=== PATIENT | female | born 1990 | race Hispanic/Latino ===

== ENCOUNTER 2018-04-10 00:55 | Emergency (ER) | payer OTHER, SELFPAY ==
[2018-04-10 01:42] LABS: #Basophils 0.1 thou/uL (0.0-0.2); #Eosinphils 0.1 thou/uL (0.0-0.7); #Lymphocytes 2.6 thou/uL (1.20-3.40); #Monocytes 0.5 thou/uL (0.11-0.59); #Neutrophils 3.9 thou/uL (1.40-6.50); %Basophils 1.1 % (0.0-1.0); %Eosinophils 1.3 % (0.0-10.0); %Lymphocytes 35.8 % (21.0-51.0); %Monocytes 7.5 % (0.0-10.0); %Neutrophils 54.3 % (42.0-75.0); Hemoglobin 12.1 g/dL (12.0-16.0); Mean Corpuscular HGB CONC 34.7 g/dL (32.0-36.0); Mean Corpuscular Hemoglobin 32.7 pg (27.0-31.0); Mean Corpuscular Volume 94.2 fL (78.0-98.0); Mean Platelet Volume 6.6 fL (7.4-10.4); Platelet Count 280 thou/uL (130-400); RBC Distribution Width 12.4 % (11.5-14.5); Red Blood Cell (RBC) Count 3.71 mill/uL (4.20-5.40); White Blood Cell (WBC) Count 7.2 thou/uL (4.8-10.8)
--- NOTE | 2018-04-10 12:08 | ULT ---
PRELIMINARY REPORT/[facility]/EMERGENCY AFTER HOURS PROCEDURE: EXAM: US Uterus, Limited CLINICAL HISTORY: 28 years old, female; Signs and symptoms; Lmp or gestational age (in weeks): 16w2d; Antepartum compli cations; Hemorrhage; ; Patient HX: Heavy vaginal bleeding tonight TECHNIQUE: Real-time ultrasound of the maternal uterus (limited) with image documentation. COMPARISON: No relevant prior studies available. FINDINGS: Single living intrauterine gestation in transverse presentation. heart rate: 145 bpm. GA by US: 16w2d. GA by LMP: 16w2d. SHAWNA: 09/23/2018. EFW: 154g-47%. Placenta is anterior grade 2. There is a focal heterogeneous area probably at the margin of the placenta measuring up to 3.5 cm reid t may represent a hematoma. Amniotic fluid appears adequate. Cervix is closed measuring 5.5 cm in lalo gth. IMPRESSION: Single viable intrauterine . Probable perigestational/marginal placental hematoma. Thank you for allowing us to participate in the care of your patient. Dictated and Authenticated by: Miguel Ashton MD 04/10/2018 3:23 AM Central Time ([place] & [place]) FINAL REPORT PELVIC ULTRASOUND: HISTORY: Vaginal bleeding. FINDINGS: Real-time imaging of the pelvis shows a single viable intrauterine in a predominantly trans verse lie. The placenta is anterior in location. Along the lower margin of the placenta is an area of mild decreased echogenicity measuring as much as 3.2 cm in length. This is suspicious for hematom a along the margin of the placenta. The exact lower position of the placenta is somewhat difficult t o ascertain as this area extends towards the cervical os. The cervix itself appears to be approximat leonel 5.4 cm in length. heart rate is 145 b.p.m. Amniotic fluid is adequate for this stage of . measurements are as follows: BPD 3.5 cm, 16 weeks 5 days Head circumference 12.7 cm, 16 weeks 3 days Abdominal circumference 11 cm, 16 weeks 6 days Femur length 1.9 cm, 15 weeks 6 days IMPRESSION: 1. Single viable intrauterine in a transverse lie, overall measurements corresponding to a gestational age of 16 weeks 2 days, estimated date of delivery 09/23/18. 2. Placenta which is more anterior in location. The lower margin of the placenta is difficult to de fine. Along the lower margin extending to the cervical os region is what appears to be a hematoma al reagan the margin of the placenta measuring as much as 3.5 cm in length. 3. This report is in agreement with the temporary report issued by [facility]. POS: [facility]
== END 2018-04-10 04:45 | disposition home or self-care (01) ==
LOC: ERS 00:55
DX: O46.92 Antepartum hemorrhage, unspecified, second trimester (principal); O43.892 Other placental disorders, second trimester; N89.8 Other specified noninflammatory disorders of vagina; Z3A.16 16 weeks gestation of pregnancy
CPT/HCPCS: 36415; 76856; 84702; 85025; 86900; 86901

== ENCOUNTER 2018-08-16 12:33 | Day surgery (SDC) | payer OTHER ==
--- NOTE | 2018-08-16 13:59 | PDOC.FPROB ---
FMR OB H&P: HPI - History of Present Illness Chief Complaint: abnormal BPP & NST in clinic Indentification: History of Present Illness: The patient is a 28YO @ 34.3 weeks today by LMP & 12.4 week sono who was sent over from [facility] after having an abnormal NST & BPP earlier today. The patient denies any decreased movement. She reports that she typically feels more movement at night and feels most daytime movement during contractions. Say she has been feeling contractions about 5x/day for the last week but says they only last about 3-5 minutes and then subside on their own. She denies any recent sexual activity, vaginal bleeding or fluid loss/leakage, or vaginal discharge, itching, or burning. The patient also denies any fever/ chills, N/V, chest pain, shortness of breath, or lower extremity edema. [facility] F[facility] OB H&P: Current - Care : 5 Para: 3013 Gestational age: 34.3 Due date: 09/24/2018 Dating Criteria: LMP & 12.4 week sono - OB Labs Blood type: O RH: positive Antibody Screen: negative HIV: negative RPR: negative HepBsAg: negative Rubella: immune Quad screen: unknown Urine drug screen: not done Gonorrhea: negative Chlamydia: negative Pap Smear: NILM & negative for HPV A1c: 5.7 on 06/20/18 GBS: unknown Additional labs: varicella immune & normal TSH FMR OB H&P: History - Past Medical History PMH: pre-gestational DM - OB History OB History: 1 SAB & 3 term SVDs - Surgical History Sx History: none - Social History Social History: No EtOH, drug, or tobacco use. - Family History Family History: Mother- DM FMR OB H&P: Medications - Current Home Medications: Medication Instructions Recorded Confirmed Type Vit 10/Iron/Folic/Dha 1 tablet PO DAILY 07/05/14 08/16/18 History [Vitafol-OB+DHA Combo Pack] Insulin Lispro [Humalog Kwikpen] 100 unit SQ DAILY 08/16/18 08/16/18 History Insulin NPH Hum/Reg Insulin HM 10,016 unit SQ DAILY 08/16/18 08/16/18 History [Humulin 70/30 Kwikpen] Insulin NPH Hum/Reg Insulin HM 25 unit SQ DAILY 08/16/18 08/16/18 History [Humulin 70/30 Kwikpen] Allergies/Adverse Reactions: Allergies Allergy/AdvReac Type Severity Reaction Status Date / Time No Known Allergies Allergy Verified 08/16/18 14:26 FMR OB H&P: ROS - Review of Systems General: denies: fever/chills Eyes: denies: vision changes, double vision Cardiovascular: denies: chest pain, palpitation, edema Respiratory: denies: shortness of breath Gastrointestinal: denies: abdominal pain, nausea, vomiting Genitourinary (Female): reports: contractions. denies: vaginal discharge, vaginal pain, vaginal bleeding Neurologic: reports: headache (mild that goes away with laying down) Integumentary: denies: rash FMR OB H&P: Vital Signs - Maternal Vital signs: BP: 102/62 HR: 92 FMR OB H&P: Physical Exam - Physical Exam General: NAD, awake, alert and oriented HEENT: normocephalic and atraumatic, MMM, grossly normal vision, grossly normal hearing, good dention Neck: supple, FROM Heart: RRR, normal S1/S2, no murmurs/rubs/gallops, pulses present, no edema General: CTAB, no respiratory distress, good air movement, no rales/rhonchi, no wheezing Abdomen: gravid, non-tender, bowel sound present Musculoskeletal: FROM in all four extremities Neurological: cranial nerves II through XII intact, sensation to pain,touch and proprioception grossly normal, no focal deficit Skin: no rash, good tugor, capillary refill <2 seconds, no jaundice Lymphatic: no unusual bruising or bleeding, no purpura, no petechia Psychiatric: intact recent and remote memory, good judgement and insight, normal mood and affect FMR OB H&P: A/P - Problem List (1) Decreased movement during in third trimester, antepartum Current Visit: Yes Status: Acute Code(s): O36.8130 - DECREASED MOVEMENTS, THIRD TRIMESTER, UNSP Qualifiers: Fetus number: single or unspecified fetus Qualified Code(s): O36.8130 - Decreased movements, third trimester, not applicable or unspecified (2) Multigravida in third trimester Current Visit: Yes Status: Chronic Code(s): Z34.83 - ENCOUNTER FOR SUPRVSN OF NORMAL , THIRD TRIMESTER (3) Diabetes in Current Visit: No Status: Acute Code(s): O24.919 - UNSP DIABETES MELLITUS IN , UNSPECIFIED TRIMESTER Qualifiers: Diabetes in type: pre-existing, type 2 Trimester: third trimester Qualified Code(s): O24.113 - Pre-existing type 2 diabetes mellitus, in , third trimester Disposition: 28 YO @ 34.3 weeks by LMP & 12.4 week sono who was sent over from clinic after having an abnormal BPP & a non-reactive NST. Abnormal testing in 3rd trimester: - BPP 6/10 w/ decreased points for breathing and a non-reactive NST in clinic today. - FHTs reassuring with baseline in the 140s and some accels noted. - Will get a repeat BPP/NST and growth scan. - Will continue with continuous monitoring to watch for reactivity and contractions. - Will also check a cervical length and do a cervical check to assess for any dilation. Class B Pre-gestational DM in : - Aware, patient is well-controlled on insulin therapy. Last A1c was 5.9. Down from 7.3 at the start of . Dispo: Will continue to monitor PRN based on results of testing and cervical exam. Discussion: Date/Time: 08/16/18 1071 This H&P was discussed with Dr. Ochoa and Dr. Lambert who agree with the above documentation and plan.
--- NOTE | 2018-08-16 14:46 | ULT ---
BIOPHYSICAL PROFILE: HISTORY: Assessment of growth. FINDINGS: A single viable intrauterine in a vertex presentation is noted. The placenta is anterior. The amniotic fluid is adequate for this stage of . Amniotic fluid index of 11.2 is obtaine d. biophysical profile scores are as follows: bone: 2. breathin. movement: 2. Amniotic fluid: 2. IMPRESSION: biophysical profile score 8 of a possible 8. POS: [facility]
--- NOTE | 2018-08-16 14:56 | ULT ---
OB ULTRASOUND: Date: 08/16/18 HISTORY: Evaluation of size and dates. FINDINGS: Real-time imaging of the pelvis was performed. This shows a single, viable intrauterine , wh ich is in a vertex presentation. The amniotic fluid is adequate for this stage of . Amniotic fluid index is 11.2. The placenta is anterior and more fundal in location. No previa. Cervical canal is not well visualized. heart rate is 153 beats/minute. measurements are as follows: BPD: 8.4 cm, 33 weeks/4 days HC: 30.6 cm, 34 weeks/0 days AC: 31.7 cm, 35 weeks/4 days FL: 6.6 cm, 34 weeks/1 day Assessment of anatomy was not performed for this study. IMPRESSION: 1. Single, viable intrauterine . Vertex presentation. Overall measurements corresponding to a gestational age of 34 weeks/2 days. Estimated date of delivery is 09/25/18. 2. Placenta which is anterior in location, without evidence of previa. POS: [facility]
--- NOTE | 2018-08-16 15:08 | PDOC.EVN ---
Event Note - Event Note Event Note: 28 YO @ 34.3 weeks by LMP & 12.4 week sono who was sent over from clinic after having an abnormal BPP & a non-reactive NST. Abnormal testing in 3rd trimester: - BPP 8/8 w/ > 2 accels noted within 10 minutes of NST. - Growth scan consistent w/ EGA of 34.2 weeks. - Cervical length 2.8-3 cm & BOGDAN of 11.2. - Cervical checked significant for a closed/thick/high cervix. - Scant amount of bloody discharge seen on cervical check & speculum exam. Likely 2/2 trauma from transvaginal U/S to check cervical length; however, will collect a VP3 to r/o infection and call patient with any abnormal results. - testing and cervical check reassuring so patient cleared for discharge home with close follow-up at clinic. Class B Pre-gestational DM in : - Aware, patient is well-controlled on insulin therapy. Last A1c was 5.9. Down from 7.3 at the start of . Dispo: Will discharge home with return precautions and instructions to follow- up closely w/ [facility]. This plan was discussed with Dr. Ochoa and Dr. Lambert who agree with the above documentation and plan.
== END 2018-08-16 14:50 | disposition home or self-care (01) ==
LOC: L&D/OP 12:33
PROVIDERS: ATTEND Obstetrics & Gynecology
DX: Z01.89 Encounter for other specified special examinations (principal); O24.113 Pre-existing type 2 diabetes mellitus, in pregnancy, third trimester; E11.9 Type 2 diabetes mellitus without complications; Z3A.34 34 weeks gestation of pregnancy; Z79.4 Long term (current) use of insulin; Z79.899 Other long term (current) drug therapy
CPT/HCPCS: 59025; 76805; 76819; 87480; 87510; 87660; 99283

== ENCOUNTER 2018-08-31 14:55 | Inpatient (IN) | payer OTHER, SELFPAY ==
[2018-08-31] MEDS ORDERED: Ondansetron PF 4 MG/2 ML Vial IVP PRN (15:45)
[2018-08-31] MEDS ORDERED: HumaLOG 300 UNITS/3 ML VIAL SC PRN ×2 (15:45)
[2018-08-31] MEDS ORDERED: Dextrose 50% Abboject 50 ML SYRINGE SLOW IVP PRN (15:45)
[2018-08-31] MEDS ORDERED: Dextrose 5% in Water 1,000 ML IV PRN (15:45)
[2018-08-31] MEDS ORDERED: Docusate 100 MG CAP PO PRN (15:45)
--- NOTE | 2018-08-31 16:19 | PDOC.FPROB ---
FMR OB H&P: HPI - History of Present Illness Chief Complaint: pregestational diabetes, poorly controlled History of Present Illness: 28 yo at 36.4 wks dated by LMP/12.4wk US (SHAWNA 09/24/18) here for admission from [facility] for poorly controlled pregestational diabetes on insulin. Reports that she takes NPH 28u in the morning and 24 units at night. Also takes humalog before meals at 16u, 13u, 18u. Does not have BG logs but this morning was 86, yesterday was 83 fasting, 170 two hours after breakfast, 140 two hours after lunch, 208 two hours after dinner. Endorses nightly FLORES, no vision disturbances, no LOF or VB, positive FM with no changes in activity. Reports all deliveries have been at 38 weeks and all vaginal except for her third which was a spon ab. Most recent delivery was her largest baby at 9#14oz. Also, had subchorionic hematoma at around 16wks, has not had any bleeding since then. HA1c on 07/18 was 5.9. Primary Care Physician: [facility] FMR OB H&P: Current - Care : 5 Para: 3013 Gestational age: 36.4 Due date: September 24, 2018 Dating Criteria: LMP and 12.4wk US - OB Labs HIV: negative RPR: negative Gonorrhea: negative Chlamydia: negative Pap Smear: negative with negative HPV A1c: 5.9 on 07/18 GBS: positive H&H: 12.2/35.5 Platelets: 278 - First Trimester Ultrasound First trimester: 03/16/18 anterior placenta FHR: 150 12.4wks SHAWNA: September 24, 2018 - Anatomy Survey Anatomy survey: 05/03/18 19.3wks biometry is consistent with the previously established dates. The anatomy is adequately visualized and appears normal. Subchorionic hematoma measures 5x3cm and is in communication with cervical os FMR OB H&P: Medications - Current Home Medications: Medication Instructions Recorded Confirmed Type Vit 10/Iron/Folic/Dha 1 tablet PO DAILY 07/05/14 08/31/18 History [Vitafol-OB+DHA Combo Pack] Insulin Lispro [Humalog Kwikpen] 13 unit SQ DAILY 08/16/18 08/31/18 History Insulin Lispro [Humalog Kwikpen] 16 unit SQ DAILY 08/16/18 08/31/18 History Insulin Lispro [Humalog Kwikpen] 18 unit SQ DAILY 08/16/18 08/31/18 History Insulin NPH Hum/Reg Insulin HM 24 unit SQ DAILY 08/16/18 08/31/18 History [Humulin 70/30 Kwikpen] Insulin NPH Hum/Reg Insulin HM 28 unit SQ DAILY 08/16/18 08/31/18 History [Humulin 70/30 Kwikpen] Aspirin [Ecotrin] 81 mg PO DAILY 08/31/18 08/31/18 History Allergies/Adverse Reactions: Allergies Allergy/AdvReac Type Severity Reaction Status Date / Time No Known Allergies Allergy Verified 08/16/18 14:26 FMR OB H&P: ROS - Review of Systems General: denies: fever/chills, recent trauma Eyes: denies: vision changes, scotomas, floaters Cardiovascular: denies: edema Respiratory: denies: shortness of breath Gastrointestinal: denies: nausea, vomiting Genitourinary (Female): denies: vaginal discharge, vaginal bleeding Musculoskeletal: denies: pain Neurologic: denies: seizures, loss of counsciousness FMR OB H&P: Vital Signs - Maternal Vital signs: Vital Signs - First Documented Temp Pulse Resp BP Pulse Ox 98.0 F 80 19 109/68 97 08/31/18 15:34 08/31/18 15:34 08/31/18 15:34 08/31/18 15:34 08/31/18 15:34 FMR OB H&P: Physical Exam - Physical Exam General: NAD, awake, alert and oriented HEENT: MMM, grossly normal vision Neck: supple, FROM Heart: RRR, normal S1/S2 General: CTAB, no respiratory distress, good air movement Abdomen: soft, gravid Neurological: sensation to pain,touch and proprioception grossly normal Skin: good tugor, capillary refill <2 seconds FMR OB H&P: Results - Labs Lab results: Laboratory Results - last 24 hr 08/31/18 15:13 POC Glucose 94 FMR OB H&P: A/P - Problem List (1) Pregestational diabetes mellitus, modified White class B Current Visit: Yes Status: Acute Code(s): O24.319 - UNSP PRE-EXISTING DIABETES IN , UNSP TRIMESTER (2) Multigravida in third trimester Current Visit: No Status: Chronic Code(s): Z34.83 - ENCOUNTER FOR SUPRVSN OF NORMAL , THIRD TRIMESTER (3) Subchorionic hematoma in first trimester Current Visit: Yes Status: Acute Code(s): O41.8X10 - OTH DISRD OF AMNIOTIC FLUID AND MEMBRNS, FIRST TRI, UNSP; O46.8X1 - OTHER ANTEPARTUM HEMORRHAGE, FIRST TRIMESTER Disposition: 28 at 36.4wks here for better control of diabetes. Will check BPP, biometry NST qshift continue insulin regimen as described in H&P, adjust as needed add mild SSI with nighttime dose accucheck fasting and 2 hrs postprandial daily weights will likely plan to induce at 37wks SHAWNA 09/24/18 Discussion: Date/Time: 08/31/18 1612 This H&P was discussed with [] and [] who agree with the above documentation and plan. Addendum - Attending - Attending Attestation Date/Time: 08/31/18 1710 I personally evaluated the patient and discussed the management with Dr. Malagon I agree with the History, Examination, Assessment and Plan documented above with any addition or exceptions noted below. 28 yo female at 36.4 wks by LMP/12.4 wk julisa presents for uncontrolled pregestational DM (class B) Patient seen earlier today at [facility]. Noted to have above goal 2 hour postprandial values. Currently not taking recommend insulin dosing and not following lifestyle recommendations. Previously declined admission for insulin adjustment. Denies LOF, VB, FLORES, visual changes, abdominal pain. +FM. VS reviewed. Labs pending. Sono reviewed. NAD. RRR. no murmurs. Gravid. NT/ND. Andrés 6 lbs. Vertex. No e/c/c 1. sIUP: record reviewed. 2. Uncontrolled, Class B, pregestational DM: Record reviewed. Restart recommend insulin reg. Start CC diet. Sono reviewed. NST q shift. Correct glucose per SSI. Goal of < 95/120. Reviewed case with laborist on-call (Dr. Garcia), agreed with IOL. Recommend 37 wks. A1C pending. Monitor of s/sx of preE due to risk. Sono: Vertex. Anterior placenta. BPP 8/8. BOGDAN 13.3 cm. EFW = 2843 g (6lb 4oz) 43 %. NST pending. Will continue inpatient monitoring. Adjust insulin as indicated. Plan for IOL at 37 wks. Blake
[2018-08-31] MEDS ORDERED: HumaLOG 300 UNITS/3 ML VIAL SC SCH (17:00)
[2018-08-31 17:15] LABS: #Lymphocytes 1.7 thou/uL (1.20-3.40); #Monocytes 0.4 thou/uL (0.11-0.59); #Neutrophils 4.4 thou/uL (1.40-6.50); %Basophils 0.6 % (0.0-1.0); %Eosinophils 0.6 % (0.0-10.0); %Lymphocytes 25.9 % (21.0-51.0); %Monocytes 6.7 % (0.0-10.0); %Neutrophils 66.2 % (42.0-75.0); Hemoglobin 12.3 g/dL (12.0-16.0); Mean Corpuscular HGB CONC 33.8 g/dL (32.0-36.0); Mean Corpuscular Hemoglobin 31.1 pg (27.0-31.0); Mean Platelet Volume 6.9 fL (7.4-10.4); Platelet Count 280 thou/uL (130-400); RBC Distribution Width 13.5 % (11.5-14.5); Red Blood Cell (RBC) Count 3.97 mill/uL (4.20-5.40); White Blood Cell (WBC) Count 6.6 thou/uL (4.8-10.8)
[2018-08-31 17:24] LABS: Hemoglobin A1c 6.2 % (4.0-6.0)
--- NOTE | 2018-08-31 17:50 | ULT ---
ULTRASOUND BIOPHYSICAL PROFILE 08/31/18 HISTORY: Pregestational diabetes. COMPARISON: None. TECHNIQUE/FINDINGS: Real time tapia scale and color and spectral analysis of the gravid uterus was performed. The cervical length is 4.6 cm. heart rate documented at 145 beats per minute. CORD DOPPLER: Placenta insertion: Peak systolic velocity 63.9 cm/s. End diastolic velocity 30.7 cm/s. Systolic to d iastolic ratio 2.08. Mid umbilical artery: Peak systolic velocity 82.3 cm/s. End diastolic velocity 33.1 cm/s. Systolic to diastolic ratio 2.49. insertion: Peak systolic velocity 54.6 cm/s. End diastolic velocity 19.8 cm/s. Systolic to tayo stolic ratio 2.76. Amniotic fluid index is 13.3 cm. This is a single viable intrauterine with average ultrasound age of 35 weeks, 6 day. Estima trisha date of delivery 09/29/18. Estimated weight is 6 lb. 4 oz., 43rd percentile. BIOMETRY: Biparietal diameter 8.82 cm 35 week, 3 day Head circumference 31.91 cm 36 week, 0 day Abdominal circumference 32.69 cm 36 week, 4 day Femur length 6.86 cm 35 week, 2 day Biophysical profile score is 8/8. The position is vertex. The placenta is anterior. IMPRESSION: Single viable intrauterine with biophysical profile score of 8/8. POS: [facility]
[2018-08-31] MEDS ORDERED: NPH, Human Insulin Isophane 300 UNIT/3 ML VIAL SC SCH (18:00)
[2018-08-31 18:02] LABS: HBSAg Index 0.23 S/CO (0-0.99); HIV (1/2) Antibody/Antigen Non-Reactive (NonReactive); HIV 1/2 INDEX 0.15 S/CO (<1.00); Hep B Surf Ag Non-Reactive S/CO (NonReactive); Syphilis Antibody Nonreactive (Nonreactive); Syphilis Antibody Index 0.02 S/CO (<1.00 Non-Reactive)
[2018-08-31] MEDS: NPH, Human Insulin Isophane 300 UNIT/3 ML VIAL SC SCH (21:22)
[2018-09-01] MEDS ORDERED: NPH, Human Insulin Isophane 300 UNIT/3 ML VIAL SC SCH (06:00)
--- NOTE | 2018-09-01 06:57 | PDOC.FM ---
- Subjective Subjective: 28 yo @ 36.5 by LMP c/w 12.4 week [facility] day 1 here for uncontrolled BS. Pt reports pos movement, denies LOF, CTX, NVDC, vaginal bleeding and vaginal discharge. No other complaints. Per nurse last evening BS were post-prandial 130 and 123 before bed. This morning AM fasting BS was 74. NST is pending. - Objective Vital Signs & Weight: Vital Signs (12 hours) Temp Pulse Resp BP Pulse Ox 09/01/18 04:05 98.6 F 87 20 96/57 L 97 09/01/18 00:10 98.2 F 78 18 109/58 L 99 08/31/18 19:25 97.7 F 74 16 101/61 98 Weight Weight 72.575 kg Result Diagrams: 08/31/18 17:04 Phys Exam - Physical Examination Constitutional: NAD HEENT: PERRLA, sclera anicteric Respiratory: no wheezing, no rales, no rhonchi, clear to auscultation bilateral Cardiovascular: RRR, no significant murmur, no rub Gastrointestinal: soft, non-tender Gravid Musculoskeletal: no edema, pulses present Neurological: non-focal, moves all 4 limbs Psychiatric: normal affect Dx/Plan (1) Pregestational diabetes mellitus, modified White class B Code(s): O24.319 - UNSP PRE-EXISTING DIABETES IN , UNSP TRIMESTER Status: Acute (2) Diabetes in Code(s): O24.919 - UNSP DIABETES MELLITUS IN , UNSPECIFIED TRIMESTER Status: Acute Qualifiers: Diabetes in type: pre-existing, type 2 Trimester: third trimester Qualified Code(s): O24.113 - Pre-existing type 2 diabetes mellitus, in , third trimester - Plan Plan: 1) White Class B diabetic: - pt had elevated dinner post-prandial and HS elevated BS - Given pt has good glycemic control prior to dinner and AM fasting BS is good will keep current NPH dosing; however, pt will need increase in short acting insulin - Increase 1700 dosing to 20U (approx 10% increase) and continue to monitor - will await additional data points before more adjusting - cont NST qshift, AM NST currently pending Dispo: stable, will cont to titrate insulin as needed for good glycemic control . Maintain current NPH dosing. Addendum - Attending - Attending Attestation Date/Time: 09/01/18 1221 I personally evaluated the patient and discussed the management with Dr. Sena I agree with the History, Examination, Assessment and Plan documented above with any addition or exceptions noted below - Patient without complaints. (+) FM. Afebrile VSS. A/P: 1) IUP@ 36 5/7 weeks - continue NST qshift. 2) Pregestational DM Class B- BG much better. Adjusted humalog for elevated postpradial. Plan to induce @ 37 weeks. Cervix /-3/post/soft- scheduled for cytotec on Monday.
[2018-09-01] MEDS: HumaLOG 300 UNITS/3 ML VIAL SC SCH ×3 (09:10→17:51)
[2018-09-01] MEDS: Prenatal Vitamin 1 TAB PO SCH (11:33)
[2018-09-01] MEDS: Aspirin 81 mg Enteric Coated Tablet PO SCH (11:33)
[2018-09-01] MEDS: NPH, Human Insulin Isophane 300 UNIT/3 ML VIAL SC SCH ×2 (11:34→21:00)
[2018-09-01] MEDS ORDERED: Sodium Chloride 0.9% 500 ML IV SCH (20:30)
[2018-09-02] MEDS: Prenatal Vitamin 1 TAB PO SCH (08:30)
[2018-09-02] MEDS: Aspirin 81 mg Enteric Coated Tablet PO SCH (08:30)
[2018-09-02] MEDS: HumaLOG 300 UNITS/3 ML VIAL SC SCH ×3 (08:35→18:24)
[2018-09-02] MEDS: NPH, Human Insulin Isophane 300 UNIT/3 ML VIAL SC SCH ×2 (08:35→21:57)
--- NOTE | 2018-09-02 12:26 | PDOC.FM ---
- Subjective Subjective: 28 yo @ 36.6 by LMP c/w 12.4 week US, hospital day 2 here for uncontrolled BS. Patient reports doing well overnight. Endorses FM. Denies FLORES, CP, RUQ pain, contractions, LOF, VB. Her BG continues to fluctuate over the past day. She had a BG reading of 47 in the morning which she attributes to having alterations in her feeding schedule in the hospital. This value increased to >200 after receiving orange juice. She also did not get her lunch humalog. She did have report having some contractions yesterday which resolved. - Objective MAR Reviewed: Yes Vital Signs & Weight: Vital Signs (12 hours) Temp Pulse Resp BP BP Pulse Ox 09/02/18 12:10 97.8 F 86 18 95/53 L 97 09/02/18 08:33 98.1 F 79 16 99/65 09/02/18 04:00 98.8 F 78 18 95/51 L Weight Weight 72.575 kg Result Diagrams: 08/31/18 17:04 Phys Exam - Physical Examination Constitutional: NAD Respiratory: no wheezing, clear to auscultation bilateral Cardiovascular: RRR, no significant murmur Gastrointestinal: soft gravid Musculoskeletal: no edema Neurological: moves all 4 limbs Psychiatric: normal affect Dx/Plan (1) Pregestational diabetes mellitus, modified White class B Code(s): O24.319 - UNSP PRE-EXISTING DIABETES IN , UNSP TRIMESTER Status: Acute (2) Multigravida in third trimester Code(s): Z34.83 - ENCOUNTER FOR SUPRVSN OF NORMAL , THIRD TRIMESTER Status: Chronic (3) Subchorionic hematoma in first trimester Code(s): O41.8X10 - OTH DISRD OF AMNIOTIC FLUID AND MEMBRNS, FIRST TRI, UNSP; O46.8X1 - OTHER ANTEPARTUM HEMORRHAGE, FIRST TRIMESTER Status: Acute - Plan Plan: 1) White Class B diabetic: - seems that her fasting BG is good, all others are high (except the 47 in the early afternoon) - We will continue with regimen that was done yesterday by Dr. Sena and encouraged patient to eat appropriate meals at the appropriate time. - will await additional data points before more adjusting - cont NST qshift, have been ok so far Dispo: stable, will cont to titrate insulin as needed for good glycemic control . Maintain current NPH dosing. Addendum - Attending - Attending Attestation Date/Time: 09/02/18 8433 I personally evaluated the patient and discussed the management with Dr. Malagon I agree with the History, Examination, Assessment and Plan documented above with any addition or exceptions noted below- Patient without complaints. (+)FM Afebrile VSS. A/p: 1) IUP @ 36 6/7 weeks with Class B DM- continue current insulin regimen. Had 1 hypoglycemia episode. Encouraged patient to eat regularly including snacks. Plan for cervical ripening Monday night.
--- NOTE | 2018-09-03 05:43 | PDOC.FM ---
- Subjective Subjective: Pt reports she did well overnight. She states that she has been feeling some contractions ~10 minutes apart with some pain this morning. She denies loss of fluids, vaginal discharge, vaginal bleeding, nausea, or vomiting. She does report FM and states she has been eating ok. - Objective MAR Reviewed: Yes Vital Signs & Weight: Vital Signs (12 hours) Temp Pulse Resp BP Pulse Ox 09/02/18 20:15 98.1 F 82 20 106/56 L 98 Weight Weight 72.575 kg Result Diagrams: 08/31/18 17:04 Phys Exam - Physical Examination Constitutional: NAD HEENT: moist MMs Neck: no JVD, full ROM Respiratory: no wheezing, no rales, clear to auscultation bilateral Cardiovascular: RRR, no significant murmur, no rub Gastrointestinal: soft (gravid, mild diffuse pain to palpation) Musculoskeletal: no edema, pulses present Neurological: non-focal, normal sensation, moves all 4 limbs Psychiatric: normal affect, A&O x 3 Skin: cap refill <2 seconds Dx/Plan (1) Pregestational diabetes mellitus, modified White class B Code(s): O24.319 - UNSP PRE-EXISTING DIABETES IN , UNSP TRIMESTER Status: Acute (2) Subchorionic hematoma in first trimester Code(s): O41.8X10 - OTH DISRD OF AMNIOTIC FLUID AND MEMBRNS, FIRST TRI, UNSP; O46.8X1 - OTHER ANTEPARTUM HEMORRHAGE, FIRST TRIMESTER Status: Acute (3) Multigravida in third trimester Code(s): Z34.83 - ENCOUNTER FOR SUPRVSN OF NORMAL , THIRD TRIMESTER Status: Chronic - Plan Plan: This is a at 37.0 by LMP c/w 12.4 week US, Hospital day 3 White Class B diabetic -Blood sugar appears to be more consistent since pt instruction and adjustment of her regimen 2 days ago. -Pt continues to have reactive NSTs -We will continue monitoring her sugar and -Overnight, BG ranged from 63-108 Addendum - Attending - Attending Attestation Date/Time: 09/03/18 1120 I personally evaluated the patient and discussed the management with Dr. Johnson I agree with the History, Examination, Assessment and Plan documented above with any addition or exceptions noted below - Patient without complaints. Afebrile VSS. A/P: IUP @37 weeks with Class B DM - BG improved. Will decrease evening NPH due to borderline low fasting readings. Induction scheduled for Monday evening.
[2018-09-03] MEDS: HumaLOG 300 UNITS/3 ML VIAL SC SCH ×3 (09:26→17:44)
[2018-09-03] MEDS: Prenatal Vitamin 1 TAB PO SCH (11:06)
[2018-09-03] MEDS: Aspirin 81 mg Enteric Coated Tablet PO SCH (11:07)
[2018-09-03] MEDS: NPH, Human Insulin Isophane 300 UNIT/3 ML VIAL SC SCH ×2 (11:09→21:16)
--- NOTE | 2018-09-04 05:19 | PDOC.FM ---
- Subjective Subjective: Pt states she did well overnight. She reports a low sugar this morning and required some milk. She denies contractions, LOF, abdominal pain, nausea, vomiting, headaches, or chest pain. She reports FM. - Objective MAR Reviewed: Yes Vital Signs & Weight: Vital Signs (12 hours) Temp Pulse Resp BP Pulse Ox 09/03/18 19:55 98.3 F 89 20 101/70 97 Weight Weight 72.575 kg Result Diagrams: 08/31/18 17:04 Phys Exam - Physical Examination Constitutional: NAD HEENT: moist MMs Neck: no JVD, full ROM Respiratory: no wheezing, clear to auscultation bilateral Cardiovascular: RRR, no significant murmur Gastrointestinal: soft, non-tender, no distention (gravid), positive bowel sounds Musculoskeletal: no edema, pulses present Neurological: moves all 4 limbs Psychiatric: normal affect, A&O x 3 Skin: cap refill <2 seconds Dx/Plan (1) Pregestational diabetes mellitus, modified White class B Code(s): O24.319 - UNSP PRE-EXISTING DIABETES IN , UNSP TRIMESTER Status: Acute (2) Subchorionic hematoma in first trimester Code(s): O41.8X10 - OTH DISRD OF AMNIOTIC FLUID AND MEMBRNS, FIRST TRI, UNSP; O46.8X1 - OTHER ANTEPARTUM HEMORRHAGE, FIRST TRIMESTER Status: Acute (3) Multigravida in third trimester Code(s): Z34.83 - ENCOUNTER FOR SUPRVSN OF NORMAL , THIRD TRIMESTER Status: Chronic - Plan Plan: White Class B diabetic -Blood sugar appears to be more consistent since pt instruction and adjustment of her regimen 3 days ago. -Pt continues to have reactive NSTs -We will continue monitoring her sugar and -Pt is scheduled for induction tonight due to uncontrollable blood glucose in -Pt continues to have elevated post prandial sugars. We are increasing her meal time insulin. Addendum - Attending - Attending Attestation Date/Time: 09/04/18 1140 I personally evaluated the patient and discussed the management with Dr. Johnson I agree with the History, Examination, Assessment and Plan documented above with any addition or exceptions noted below - Patient without complaints. Afebrile VSS. A/P: IUP@ 37 1/7 weeks with Class B DM- short acting insulin adjusted due to elevated postprandial readings. Plan for induction today. Reassuting NSTs.
[2018-09-04] MEDS: Prenatal Vitamin 1 TAB PO SCH (08:31)
[2018-09-04] MEDS: NPH, Human Insulin Isophane 300 UNIT/3 ML VIAL SC SCH ×2 (08:32→20:25)
[2018-09-04] MEDS: HumaLOG 300 UNITS/3 ML VIAL SC SCH ×2 (08:33→17:36)
[2018-09-04] MEDS: Aspirin 81 mg Enteric Coated Tablet PO SCH (09:16)
[2018-09-04] MEDS ORDERED: HumaLOG 300 UNITS/3 ML VIAL SC SCH (10:51)
--- NOTE | 2018-09-04 14:48 | PDOC.EVN ---
Event Note - Event Note Event Note: Called to pt's room by nursing due to pt having strong contractions. I check pt and SVE was /-3, posterior, firm. FHTs baseline 140s, moderate reactivity, accels present, no decels. We will likely recheck pt in 4 hours if she continues to have painful contractions. I am giving 1L of LR at 125ml/hr.
[2018-09-04] MEDS: Lactated Ringer's 1,000 ML IV SCH (14:54)
[2018-09-05] MEDS: Lactated Ringer's 1,000 ML IV SCH ×2 (00:02→13:53)
[2018-09-05] MEDS ORDERED: Misoprostol 100 MCG TAB ONE (05:01)
[2018-09-05] MEDS: Misoprostol 100 MCG TAB VAG SCH ×2 (05:20→11:09)
[2018-09-05] MEDS ORDERED: Butorphanol Tartrate 1 MG/ML VIAL SLOW IVP PRN (05:45)
[2018-09-05] MEDS ORDERED: NS / Oxytocin 40 units/1000ml 1,000 ML IV PRN (05:45)
[2018-09-05] MEDS ORDERED: Lidocaine 1% (PF) 30 ML VIAL SC PRN (05:45)
[2018-09-05] MEDS ORDERED: Ibuprofen 800 MG TAB PO SCH (05:45)
[2018-09-05] MEDS ORDERED: Misoprostol 200 MCG TAB PR PRN (05:45)
[2018-09-05] MEDS ORDERED: Penicillin G Potassium 5 MILL.UNITS in Sodium Chloride 0.9% 100 ML IVPB SCH (05:45)
[2018-09-05] MEDS ORDERED: Dextrose 5 %-0.45 % NaCl 1,000 ML IV PRN (05:56)
[2018-09-05] MEDS ORDERED: HumaLOG 300 UNITS/3 ML VIAL SC PRN ×3 (05:58→06:00)
--- NOTE | 2018-09-05 05:59 | PDOC.LDPN ---
Labor & Delivery Progress Note - Subjective Subjective: comfortable - Objective Vital signs reviewed and normal: yes General: NAD, resting Dilation: 0 Effacement: 0% Station: -3 FHT: category 1 (140/mod/+accel/no decel) Plan: labor augmentation -: IOL, medically indicated for uncontrolled DM in - Cat 1 strip - closed/thick/high @ 0530, cytotec placed - White class B: q2h glucose checks. Decrease long acting to half dose. Has had 2 episodes hypoglycemia in 60s overnight corrected with juice/crackers. SSI parameter protocol - D5 1/2 @ 125 for BG <140 during labor GBS positive - start antibiotic ppx Dispo: medically indicated IOL, will place cytotec
[2018-09-05] MEDS ORDERED: Sodium Chloride 0.45% 1,000 ML IV PRN (06:08)
[2018-09-05] MEDS ORDERED: NPH, Human Insulin Isophane 300 UNIT/3 ML VIAL SC SCH ×2 (07:00→21:00)
[2018-09-05] MEDS ORDERED: Fentanyl 4 mcg/Bup 0.1% Cadd 100 ML ONE ×2 (08:42→17:31)
[2018-09-05] MEDS ORDERED: Acetaminophen 325 MG TAB PO PRN (09:08)
[2018-09-05] MEDS ORDERED: Eucerin (Mineral Oil/Petrolatum,White) 30 gm Jar TOP PRN (09:08)
[2018-09-05] MEDS ORDERED: Promethazine HCl 25 MG/ML VIAL IM PRN (09:08)
[2018-09-05] MEDS ORDERED: Lactated Ringer's 500 ML IV PRN (09:08)
[2018-09-05] MEDS ORDERED: diphenhydrAMINE 50 MG/ML VIAL IVP PRN (09:08)
[2018-09-05] MEDS ORDERED: Ondansetron PF 4 MG/2 ML Vial IVP PRN ×2 (09:08→20:59)
[2018-09-05] MEDS ORDERED: ePHEDrine/0.9% NaCl/PF SYRINGE 50 mg/10 ml SLOW IVP PRN (09:08)
[2018-09-05] MEDS ORDERED: Naloxone HCl 0.4 mg/ml Vial IVP PRN ×2 (09:08)
[2018-09-05] MEDS ORDERED: Fentanyl 4 mcg/Bupivacaine 0.1% Cassette 100 ML EPIDURAL SCH (09:15)
[2018-09-05] MEDS ORDERED: Communication Order-Pharmacy FS SCH (09:15)
--- NOTE | 2018-09-05 09:25 | PDOC.LDPN ---
Labor & Delivery Progress Note - Subjective Subjective: comfortable, no concerns - Objective Vital signs reviewed and normal: yes General: NAD, resting Uterine fundus: non tender Dilation: 3 Effacement: 75% Station: -2 FHT: category 1, variability present (moderate, baseline 140) [place] contractions every: 2 minutes - Assessment (1) Pregestational diabetes mellitus, modified White class B Code(s): O24.319 - UNSP PRE-EXISTING DIABETES IN , UNSP TRIMESTER Current Visit: Yes Status: Acute (2) Subchorionic hematoma in first trimester Code(s): O41.8X10 - OTH DISRD OF AMNIOTIC FLUID AND MEMBRNS, FIRST TRI, UNSP; O46.8X1 - OTHER ANTEPARTUM HEMORRHAGE, FIRST TRIMESTER Current Visit: Yes Status: Acute (3) Multigravida in third trimester Code(s): Z34.83 - ENCOUNTER FOR SUPRVSN OF NORMAL , THIRD TRIMESTER Current Visit: No Status: Chronic -: IOL, medically indicated for uncontrolled DM in -Cat 1 strip, baseline 140, moderate variability -3/70/-2 -Rey every 2 minutes, hold current dose of cytotec -White class B: q2hr glucose check. Latest was 67, hold insulin -Desires epidural GBS positive -Continue abx (has received first dose)
[2018-09-05] MEDS: Penicillin G 2.5 MILL.units 2.5 MILL.UNITS in Premix Bag 1 BAG IVPB SCH ×3 (10:06→18:40)
[2018-09-05 10:23] VITALS: BMI 28.9
[2018-09-05] MEDS: Aspirin 81 mg Enteric Coated Tablet PO SCH (11:09)
--- NOTE | 2018-09-05 14:56 | PDOC.LDPN ---
Labor & Delivery Progress Note - Subjective Subjective: comfortable - Objective Vital signs reviewed and normal: yes General: NAD Uterine fundus: non tender SVE: 12:40 by nurse Dilation: 5 Effacement: 75% Station: -1 FHT: category 1, variability present [place] contractions every: q1 min - Assessment (1) Term Code(s): Z34.80 - ENCOUNTER FOR SUPRVSN OF NORMAL , UNSP TRIMESTER Current Visit: Yes Status: Acute (2) Pregestational diabetes mellitus, modified White class B Code(s): O24.319 - UNSP PRE-EXISTING DIABETES IN , UNSP TRIMESTER Current Visit: Yes Status: Acute Plan: continue plan of care -: 28 year old at 37.2 wks present with history of uncontrolled pregestational DM Class B Continue current plan of care. Patient s/p cytotec. Category I strip. BG has been in 90's all day. Has not required PRN insulin. Dominique Burkett, DO PGY-2
--- NOTE | 2018-09-05 15:38 | PDOC.LDPN ---
Labor & Delivery Progress Note - Objective Vital signs reviewed and normal: yes General: resting Uterine fundus: non tender SVE: /-1 FHT: category 1 [place] contractions every: q3 min - Assessment (1) Pregestational diabetes mellitus, modified White class B Code(s): O24.319 - UNSP PRE-EXISTING DIABETES IN , UNSP TRIMESTER Current Visit: Yes Status: Acute (2) Subchorionic hematoma in first trimester Code(s): O41.8X10 - OTH DISRD OF AMNIOTIC FLUID AND MEMBRNS, FIRST TRI, UNSP; O46.8X1 - OTHER ANTEPARTUM HEMORRHAGE, FIRST TRIMESTER Current Visit: Yes Status: Acute (3) Multigravida in third trimester Code(s): Z34.83 - ENCOUNTER FOR SUPRVSN OF NORMAL , THIRD TRIMESTER Current Visit: No Status: Chronic Plan: continue plan of care -: Reassuring FHTs. Plan to AROM soon. Last accucheck 90; continue to monitor.
--- NOTE | 2018-09-05 17:23 | PDOC.LDPN ---
Labor & Delivery Progress Note - Subjective Subjective: comfortable - Objective Vital signs reviewed and normal: yes General: NAD Uterine fundus: non tender SVE: 16:51 Dilation: 6 Effacement: 90% Station: -1 FHT: category 1, variability present [place] contractions every: 1-2 min AROM: bloody fluid (with clear fluid) - Assessment (1) Term Code(s): Z34.80 - ENCOUNTER FOR SUPRVSN OF NORMAL , UNSP TRIMESTER Current Visit: Yes Status: Acute (2) Pregestational diabetes mellitus, modified White class B Code(s): O24.319 - UNSP PRE-EXISTING DIABETES IN , UNSP TRIMESTER Current Visit: Yes Status: Acute Plan: continue plan of care -: AROM at 16:50. Cervical check /-1. Dilation unchanged from previous exam. Continue current plan of care. Patient with epidural resting comfortably. Consider pitocin at next check if no change.
[2018-09-05] MEDS ORDERED: Lanolin Ointment 7 GM TUBE TOP PRN (20:59)
[2018-09-05] MEDS ORDERED: NS / Oxytocin 40 units/1000ml 1,000 ML IV SCH (20:59)
[2018-09-05] MEDS ORDERED: Milk Of Magnesia 30 ML UDCUP PO PRN (20:59)
[2018-09-05] MEDS ORDERED: diphenhydrAMINE 25 MG CAP PO PRN (20:59)
[2018-09-05] MEDS ORDERED: Bisacodyl 10 MG SUPP PR PRN (20:59)
[2018-09-05] MEDS ORDERED: NS / Oxytocin 40 units/1000ml 1,000 ML ONE (21:05)
[2018-09-05] MEDS: Docusate Calcium (SURFAK) 240 MG CAP PO SCH (23:43)
[2018-09-05] MEDS: Ibuprofen 800 MG TAB PO SCH (23:43)
[2018-09-06] MEDS: Ibuprofen 800 MG TAB PO SCH ×3 (06:08→21:50)
--- NOTE | 2018-09-06 06:19 | PDOC.OPDEL ---
OB Operative/Delivery Note Delivery Dr/Surgeon: Tiesha/ Pre-Delivery Diagnosis: medically indicated induction Procedure/Post Delivery Dx: spontaneous vaginal delivery Weeks gestation: 37 (37.1) Anesthesia: epidural - Additional Findings/Plan Placenta delivered: spontaneous Repaired Obstetrical Laceration: none Estimated blood loss: 32 mL Compilations/Other Findings: Delivering Physician: Tiesha Attending: Procedure: Spontaneous Vaginal Delivery Anesthesia: epidural QBL: 32 ml Pre-op Diagnosis: 1. Term intrauterine in labor 2. Pregestational DM class B, uncontrolled 3. GBS positive Post-op Diagnosis: 1. Term intrauterine , delivered 2. same as above Indications: A 28 y/o female presents to L&D for induction due to uncontrolled pregestational DM Delivery Note: This is 28 yo F @ 37.1 wks who delivered a viable F at 1910 on 07/05/2019. Following an uneventful antepartum course, a vigorous F was delivered over an intact perineum in the occipitoanterior position. Anterior Shoulder and then remainder of the body delivered. No nuchal cord. The head was held down and mouth and nares were bulb suctioned. Cord clamped after delayed cord clamping and cut and cord blood collected. Placenta delivered intact in the [place] presentation with a 3 vessel cord noted. Fundal massage was performed and the fundus was firm. The cervix and vagina were inspected and found to be free of lacerations. Infant went to nursery in good condition for routine care. Apgars were 9/9 at 1 & 5 minutes, respectively. Patient tolerated delivery well and went to after routine recovery/care. Post delivery plan: routine recovery
[2018-09-06] MEDS ORDERED: HumaLOG 300 UNITS/3 ML VIAL SC SCH ×3 (07:30→17:00)
[2018-09-06] MEDS: Ferrous Sulfate 325 MG TAB PO SCH ×2 (07:38→17:02)
[2018-09-06] MEDS: Misoprostol 100 MCG TAB VAG SCH (08:13)
[2018-09-06] MEDS: Lactated Ringer's 1,000 ML IV SCH (08:13)
[2018-09-06] MEDS: Prenatal Vitamin 1 TAB PO SCH (08:35)
[2018-09-06] MEDS: Docusate Calcium (SURFAK) 240 MG CAP PO SCH ×2 (08:35→21:49)
[2018-09-06] MEDS ORDERED: Adacel (T-DAP) 0.5 ML SYRINGE IM ONE (09:00)
[2018-09-06] MEDS ORDERED: NPH, Human Insulin Isophane 300 UNIT/3 ML VIAL SC SCH (09:00)
--- NOTE | 2018-09-06 10:05 | PDOC.PP ---
Post Progress Note Post Day #: 1 Subjective: Patient doing well this AM. No significant overnight events. Patient's lochia minimal. Ambulating. Tolerating PO. PO intake tolerated: yes Flatus: yes Ambulation: yes Vital Signs (12 hours) Temp Pulse Resp BP BP Pulse Ox 09/06/18 08:18 98.1 F 57 L 20 111/56 L 95 09/06/18 05:15 98.1 F 55 L 18 112/63 09/05/18 23:30 98.4 F 64 18 106/66 09/05/18 22:30 97.8 F 66 18 116/72 Weight Weight 71.668 kg - Physical Examination General: NAD Cardiovascular: no m/r/g, RRR Respiratory: clear to auscultation bilaterally, non-labored breathing Abdominal: + bowel sounds, lochia (minimal), no distention, appropriately TTP Fundus firm & at: below umbilicus Neurological: no gross focal deficits Psychiatric: A&Ox3, normal affect Result Diagrams: 08/31/18 17:04 Additional Labs: Post Labs Blood Type O POSITIVE 09/05/18 05:10 Hep Bs Antigen Non-Reactive S/CO (NonReactive) 08/31/18 17:04 (1) Term Code(s): Z34.80 - ENCOUNTER FOR SUPRVSN OF NORMAL , UNSP TRIMESTER Status: Acute (2) Pregestational diabetes mellitus, modified White class B Code(s): O24.319 - UNSP PRE-EXISTING DIABETES IN , UNSP TRIMESTER Status: Acute - Assessment/Plan 28 year old delivered TAGA F infant via at 19:10 on 09/05 1. Routine PP care - No complications - Desires OCP's for contraception - Encourage ambulation - Breast and bottle feeding - Tolerating PO - 2 week f/u at [facility] 2. Type II DM - BG has been well controlled PP - Continue FBG and 2h PP BG checks - Patient on metformin and glyburide prior to and was being evaluated q3 months by PCP (she cannot recall name of PCP) - Will d/c insulin regimen, place on SSI and restart metformin - Patient will need close follow up 3. GBS positive - Adequately treated with penicillin x4 Dispo: Plan for possible d/c home tomorrow. Monitor BG today and tomorrow. Addendum - Attending - Attending Attestation Date/Time: 09/06/18 8074 I personally evaluated the patient and discussed the management with Dr. Burkett I agree with the History, Examination, Assessment and Plan documented above with any addition or exceptions noted below - Patient without complaints. Minimal lochia. Afebrile VSS. A/P: 1) PPD#1 s/p - continue routine care. 2) Pregestational DM- continue to monitor accuchecks; started on half dose of her antepartum insulin. Will also add metformin as patent tolerates po.
[2018-09-06] MEDS ORDERED: Dextrose 50% Abboject 50 ML SYRINGE SLOW IVP PRN (12:15)
[2018-09-06] MEDS ORDERED: HumaLOG 300 UNITS/3 ML VIAL SC PRN (12:15)
[2018-09-06] MEDS ORDERED: Dextrose 5% in Water 1,000 ML IV PRN (12:15)
[2018-09-06] MEDS: metFORMIN 500 MG TAB PO SCH (17:02)
[2018-09-07] MEDS: Ibuprofen 800 MG TAB PO SCH ×2 (05:39→14:03)
[2018-09-07 08:03] VITALS: BP 106/67; TEMP 98.1
[2018-09-07] MEDS: Ferrous Sulfate 325 MG TAB PO SCH (09:21)
[2018-09-07] MEDS: Prenatal Vitamin 1 TAB PO SCH (09:21)
[2018-09-07] MEDS: Docusate Calcium (SURFAK) 240 MG CAP PO SCH (09:22)
[2018-09-07] MEDS: metFORMIN 500 MG TAB PO SCH (09:22)
--- NOTE | 2018-09-07 10:57 | PDOC.PP ---
Post Progress Note Post Day #: 2 Subjective: Patient doing well. No significant overnight events. Patient tolerating PO. Lochia minimal. PO intake tolerated: yes Flatus: yes Ambulation: yes Vital Signs (12 hours) Temp Pulse Resp BP Pulse Ox 09/07/18 08:02 98.1 F 60 20 106/67 97 Weight Weight 71.668 kg - Physical Examination General: NAD Cardiovascular: no m/r/g, RRR Respiratory: clear to auscultation bilaterally, non-labored breathing Abdominal: + bowel sounds, lochia (minimal), no distention, appropriately TTP Fundus firm & at: below umbilicus Neurological: no gross focal deficits Psychiatric: A&Ox3, normal affect Result Diagrams: 08/31/18 17:04 Additional Labs: Post Labs Blood Type O POSITIVE 09/05/18 05:10 Hep Bs Antigen Non-Reactive S/CO (NonReactive) 08/31/18 17:04 (1) Term delivered Code(s): O80 - ENCOUNTER FOR FULL-TERM UNCOMPLICATED DELIVERY Status: Acute (2) Pregestational diabetes mellitus, modified White class B Code(s): O24.319 - UNSP PRE-EXISTING DIABETES IN , UNSP TRIMESTER Status: Acute (3) (spontaneous vaginal delivery) Code(s): O80 - ENCOUNTER FOR FULL-TERM UNCOMPLICATED DELIVERY Status: Acute - Assessment/Plan 28 year old delivered TAGA F infant via at 19:10 on 09/05 1. Routine PP care - No complications - Desires OCP's for contraception - Breast and bottle feeding - Tolerating PO - 2 week f/u at [facility] 2. Type II DM - BG has been well controlled PP - Continue FBG and 2h PP BG checks - Patient on metformin and glyburide prior to and was being evaluated q3 months by PCP (she cannot recall name of PCP) - Patient started on metformin yesterday; continue metformin. BG well controlled - Patient will need close follow up 3. GBS positive - Adequately treated with penicillin x4 Dispo: Plan for d/c home this afternoon. Addendum - Attending - Attending Attestation Date/Time: 09/07/18 6922 I personally evaluated the patient and discussed the management with Dr. Burkett I agree with the History, Examination, Assessment and Plan documented above with any addition or exceptions noted below- Patient without complaints. Ambulating/voiding. Afebrile VSS. A/P: 1) PPD#2 s/p - doing well; plan to d/ c home today. 2) Pregestational DM- started on metformin yesterday. Continue metformin and insulin. F/U in 2 weeks at [facility].
== END 2018-09-07 16:00 | disposition home or self-care (01) | DRG 807 ==
LOC: 3SE 14:55 → L&D 09-05 04:43 → 3SW 09-05 21:30
PROVIDERS: ADMIT Family Medicine; ATTEND Family Medicine
PROC: 10E0XZZ Delivery of Products of Conception, External Approach (ICD-10-PCS; principal; 2018-09-05)
PROC: 3E0P7VZ Introduction of Hormone into Female Reproductive, Via Natural or Artificial Opening (ICD-10-PCS; 2018-09-05)
DX: O24.12 Pre-existing type 2 diabetes mellitus, in childbirth (principal); Z37.0 Single live birth; E11.65 Type 2 diabetes mellitus with hyperglycemia; O20.8 Other hemorrhage in early pregnancy; Z3A.37 37 weeks gestation of pregnancy; O99.820 Streptococcus B carrier state complicating pregnancy; Z79.4 Long term (current) use of insulin
CPT/HCPCS: 36415; 36416; 51702; 59025; 76700; 76805; 76819; 83036; 85025; 86780; 86850; 86900; 86901; 87340; 87389; J1815; J2405; J2540; J7050